=== PATIENT | female | born 1995 | race Caucasian/White ===

== ENCOUNTER 2019-01-31 20:35 | Emergency (ER) | payer BC ==
[~2019-01-31] VITALS: Ht 149.9 cm; Wt 47.6 kg
[2019-01-31 20:39] VITALS: BP 106/70
--- NOTE | 2019-01-31 20:43 | NUR ---
TO LOBBY A/W BED, XRAY, AMBULATORY
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
--- NOTE | 2019-01-31 21:27 | NUR ---
PATIENT AMBULATED TO ER BED 3.
[2019-01-31 21:49] LABS: BILIRUBIN,URINE NEGATIVE (NEGATIVE); BLOOD, URINE NEGATIVE (NEGATIVE); COLOR,URINE YELLOW (YELLOW); LEUKOCYTE ESTERASE ,URINE NEGATIVE (NEGATIVE); NITRITE, URINE NEGATIVE (NEGATIVE); PH,URINE 6.5 (5.0-9.0); UGLUCOSE NEGATIVE (NEGATIVE)
[2019-01-31 21:50] LABS: APPEARANCE,URINE CLEAR (CLEAR)
--- NOTE | 2019-01-31 22:09 | NUR ---
DR. ALBARRAN EVALUATING PT BEDSIDE
[2019-01-31] MEDS ORDERED: IBUPROFEN 800 MG TAB PO ONE (22:15)
[2019-01-31] MEDS ORDERED: IBUPROFEN CHILDRENS 100 MG/5 ML UDC PO ONE (22:25)
[2019-01-31 22:37] VITALS: BP 106/70
--- NOTE | 2019-01-31 22:37 | NUR ---
Patient discharged with v/s stable. Written and verbal after care instructions given and explained. Patient alert, oriented and verbalized understanding of instructions. Ambulatory with steady gait. All questions addressed prior to discharge. ID band removed. Patient advised to follow up with PMD. Rx of MOTRIN WAS given. Patient educated on indication of medication including possible reaction and side effects. Opportunity to ask questions provided and answered.
== END 2019-01-31 22:37 | disposition home or self-care (01) ==
LOC: MED 20:35
DX: S16.1XXA Strain of muscle, fascia and tendon at neck level, initial encounter (principal); M54.9 Dorsalgia, unspecified; V89.2XXA Person injured in unspecified motor-vehicle accident, traffic, initial encounter; Y93.89 Activity, other specified; Y92.89 Other specified places as the place of occurrence of the external cause; Y99.8 Other external cause status
CPT/HCPCS: 72040; 81002; 81003; 81025; 99284